=== PATIENT | female | born 1980 ===

== ENCOUNTER 2016-07-18 15:27 | Outpatient (CLI) | payer MEDICAID | END 2016-07-18 15:28 | disposition home or self-care (01) | LOC: LABHHL 15:27 | PROVIDERS: ATTEND Internal Medicine Gastroenterology | DX: K58.0 Irritable bowel syndrome with diarrhea (principal); R14.0 Abdominal distension (gaseous); K30 Functional dyspepsia | CPT/HCPCS: 88305; 88342 ==